=== PATIENT | male | born 2000 | race Caucasian/White ===

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

== ENCOUNTER 2018-02-09 13:36 | Emergency (ER) | payer BC ==
[2018-02-09 14:03] VITALS: BP 141/70
--- NOTE | 2018-02-09 14:08 | UC ---
Hand/Wrist HPI - HPI Summary HPI Summary: Got angry and punched a wall with left hand last night. Bruising with persistent pain today. - History Of Current Complaint Stated Complaint: LEFT HAND PAIN Time Seen by Provider: 02/09/18 13:59 Onset/Duration: Sudden Onset - punched wall, Lasting Days - 1 Severity Initially: Mild Severity Currently: Moderate Character Of Pain: Dull, Aching Aggravating Factor(s): Movement Alleviating Factor(s): Rest, Ice Associated Signs And Symptoms: Positive: Swelling, Bruising. Negative: Weakness , Numbness/Tingling Related History: Dominant Hand Right - Allergies/Home Medications Allergies/Adverse Reactions: Allergies Allergy/AdvReac Type Severity Reaction Status Date / Time No Known Allergies Allergy Verified 02/09/18 13:53 Home Medications: Home Medications Ibuprofen TAB* [Advil TAB*] 800 mg PO Q6H PRN 02/09/18 [History Confirmed ] PMH/Surg Hx/FS Hx/Imm Hx Previously Healthy: Yes - Surgical History Surgical History: None - Family History Known Family History: Positive: None Negative: Cardiac Disease, Hypertension, Diabetes - Social History Occupation: Student Lives: With Family Alcohol Use: None Substance Use Type: None Smoking Status (MU): Never Smoked Tobacco Type: Cigarettes Amount Used/How Often: social smoker on weekends - Immunization History Most Recent Influenza Vaccination: Unsure Hx Tetanus, Diphtheria Vaccination: Yes Vaccination Up to Date: Yes Review of Systems Musculoskeletal: Arthralgia Is Patient Immunocompromised?: No All Other Systems Reviewed And Are Negative: Yes Physical Exam Triage Information Reviewed: Yes Appearance: Well-Appearing, Well-Nourished, Pain Distress - mild Vital Signs Reviewed: Yes Eyes: Positive: Conjunctiva Clear Neck exam: Normal Respiratory Exam: Normal Cardiovascular Exam: Normal Musculoskeletal: Positive: ROM Limited @ - left 5th metacarpal, Other: - tenderness over middle 5th metacarpal Neurological Exam: Normal Psychological Exam: Normal Skin Exam: Normal Procedures - Splinting Hand-Made Type: orthoglass Splint: ulnar - short arm left Post-Proc Neuro Vasc Exam: normal, unchanged from pre-exam Diagnostics - Radiology No standard instances Xray Interpretation: Positive (See Comments) - left 5th metacarpal fracture Radiology Interpretation Completed By: ED Physician Hand/Wrist Course/Dx - Differential Dx/Diagnosis Differential Diagnosis/HQI/PQRI: Contusion, Fracture, Sprain, Strain Provider Diagnoses: Left 5th metacarpal fracture Discharge - Sign-Out/Discharge Documenting (check all that apply): Discharge - Discharge Plan Condition: Stable Disposition: HOME Patient Education Materials: Hand Fracture (ED), Splint Care (ED), How to Use a Sling (ED) Referrals: Lexi Espinoza PA [Primary Care Provider] - Jesus Burnette MD [Medical Doctor] - 1 Day (follow up hand fracture.) - Billing Disposition and Condition Condition: STABLE Disposition: HOME
--- NOTE | 2018-02-09 14:20 | RAD ---
INDICATION: Trauma. COMPARISON: None. TECHNIQUE: 4 views of the left hand were obtained. FINDINGS: There is a fracture at the diaphysis of the left fifth metacarpal. On the oblique view radiograph there appears to be approximately 30 degrees of dorsal angulation of the fracture site. The remaining visualized bones are intact and appropriately aligned. IMPRESSION: Fracture of the left fifth metacarpal as described above.
== END 2018-02-09 14:37 | disposition home or self-care (01) ==
LOC: UCCORT 13:36
DX: S62.357A Nondisplaced fracture of shaft of fifth metacarpal bone, left hand, initial encounter for closed fracture (principal); W22.09XA Striking against other stationary object, initial encounter; Y93.9 Activity, unspecified; Y92.9 Unspecified place or not applicable; F17.210 Nicotine dependence, cigarettes, uncomplicated
CPT/HCPCS: 26600; 99213; G0463

== ENCOUNTER 2018-04-27 15:52 | Emergency (ER) | payer BC ==
[2018-04-27 16:09] VITALS: BP 140/60
--- NOTE | 2018-04-27 16:42 | UC ---
Respiratory Complaint HPI - HPI Summary HPI Summary: states he was chilling at home when he started having chills, runny nose and sinus congestion 2 days ago, green mucus for one day. Denies tobacco smoking, PMH or pulmonary disease. - History of Current Complaint Chief Complaint: UCGeneralIllness Stated Complaint: SORE THROAT/SINUS PRESSURE Time Seen by Provider: 04/27/18 15:56 Hx Obtained From: Patient Onset/Duration: Sudden Onset, Lasting Days Severity Initially: Mild Severity Currently: Moderate Pain Intensity: 7 Character: Cough: Nonproductive Aggravating Factors: Nothing Alleviating Factors: Nothing Associated Signs And Symptoms: Positive: Nasal Congestion, Sinus Discomfort - Risk Factors Pulmonary Embolism Risk Factors: Negative Cardiac Risk Factors: Negative Pseudomonas Risk Factors: Negative Tuberculosis Risk Factors: Negative - Allergies/Home Medications Allergies/Adverse Reactions: Allergies Allergy/AdvReac Type Severity Reaction Status Date / Time No Known Allergies Allergy Verified 04/27/18 16:05 PMH/Surg Hx/FS Hx/Imm Hx Previously Healthy: Yes - Surgical History Surgical History: None - Family History Known Family History: Positive: None Negative: Cardiac Disease, Hypertension, Diabetes - Social History Alcohol Use: Occasionally Substance Use Type: None Smoking Status (MU): Never Smoked Tobacco Type: Cigarettes Amount Used/How Often: social smoker on weekends - Immunization History Most Recent Influenza Vaccination: Unsure Hx Tetanus, Diphtheria Vaccination: Yes Vaccination Up to Date: Yes Review of Systems Constitutional: Fever, Chills ENT: Nasal Discharge, Sinus Congestion Respiratory: Cough All Other Systems Reviewed And Are Negative: Yes Physical Exam Triage Information Reviewed: Yes Appearance: Well-Appearing, No Pain Distress, Well-Nourished Vital Signs: Initial Vital Signs Temp 99.1 F 04/27/18 16:06 Pulse 90 04/27/18 16:06 Resp 14 04/27/18 16:06 BP 140/60 04/27/18 16:06 Pulse Ox 100 04/27/18 16:06 Vital Signs Reviewed: Yes Eyes: Positive: Conjunctiva Clear ENT: Positive: Pharynx normal, Nasal congestion - no sinus tenderness, TMs normal Neck: Positive: Supple, Nontender, No Lymphadenopathy Respiratory: Positive: Chest non-tender, Lungs clear, Normal breath sounds, No respiratory distress, No accessory muscle use Cardiovascular: Positive: RRR, No Murmur, Pulses Normal, Brisk Capillary Refill Abdomen Description: Positive: Nontender, No Organomegaly, Soft UC Diagnostic Evaluation - Laboratory O2 Sat by Pulse Oximetry: 100 Respiratory Course/Dx - Course Course Of Treatment: acute sinusitis, possible viral etiology, discussed with patient wait and see antibiotic prescription of Augmentin, if symptoms do not improve in 4 days or worsen. - Differential Dx/Diagnosis Provider Diagnoses: acute sinusitis Discharge - Sign-Out/Discharge Documenting (check all that apply): Discharge/Admit/Transfer - Discharge Plan Condition: Stable Disposition: HOME Prescriptions: Amoxicillin/Clavulanate TAB* [Augmentin TAB 875*] 875 mg PO BID 10 Days #20 tab Patient Education Materials: Amoxicillin/Clavulanate Potassium (By mouth), Rhinosinusitis (ED) Referrals: Lexi Espinoza PA [Primary Care Provider] - Additional Instructions: augmentin is an antibiotic that was sent to your pharmacy. Please wait and see for at least 3-4 days if symptoms start to improve before you take it. If you persist with fever, and pain/discharge on sinuses becomes worse, start the antibiotic - Billing Disposition and Condition Condition: STABLE Disposition: Home
== END 2018-04-27 16:39 | disposition home or self-care (01) ==
LOC: UCCORT 15:52
DX: J01.90 Acute sinusitis, unspecified (principal); F17.210 Nicotine dependence, cigarettes, uncomplicated
CPT/HCPCS: 87651; 99212; G0463

== ENCOUNTER 2018-07-07 16:51 | Emergency (ER) | payer BC ==
[2018-07-07 17:11] VITALS: BP 125/75
[2018-07-07] MEDS ORDERED: Amoxicillin/Clavulanate TAB* 875 MG PO ONE ×3 (17:42→17:45)
--- NOTE | 2018-07-07 19:36 | UC ---
Throat Pain/Nasal Jesús HPI - HPI Summary HPI Summary: 18-year-old male comes in with a complaint of sore throat for 2 days. He is also having fevers and body aches. Minimal rhinorrhea. No chest congestion no wheezing. He has been taking ibuprofen for the pain. No vomiting no abdominal pain. - History of Current Complaint Chief Complaint: UCGeneralIllness Stated Complaint: SORE THROAT Time Seen by Provider: 07/07/18 17:36 Pain Intensity: 8 Pain Scale Used: 0-10 Numeric - Allergies/Home Medications Allergies/Adverse Reactions: Allergies Allergy/AdvReac Type Severity Reaction Status Date / Time No Known Allergies Allergy Verified 07/07/18 17:10 PMH/Surg Hx/FS Hx/Imm Hx Other Endocrine History: NO DM Other Cardiovascular History: NO HTN - Surgical History Surgical History: None - Family History Known Family History: Positive: None Negative: Cardiac Disease, Hypertension, Diabetes - Social History Alcohol Use: Occasionally Substance Use Type: None Smoking Status (MU): Never Smoked Tobacco Type: Cigarettes Amount Used/How Often: social smoker on weekends - Immunization History Most Recent Influenza Vaccination: Unsure Hx Tetanus, Diphtheria Vaccination: Yes Vaccination Up to Date: Yes Review of Systems Constitutional: Fever, Chills Skin: Negative Eyes: Negative ENT: Sore Throat, Nasal Discharge Respiratory: Negative Cardiovascular: Negative Gastrointestinal: Negative Genitourinary: Negative Motor: Negative Neurovascular: Negative Musculoskeletal: Negative Neurological: Negative Psychological: Negative Is Patient Immunocompromised?: No All Other Systems Reviewed And Are Negative: Yes Physical Exam Triage Information Reviewed: Yes Appearance: Ill-Appearing - MILDLY ILL APPEARING Vital Signs: Initial Vital Signs Temp 102.2 F 07/07/18 17:05 Pulse 112 07/07/18 17:05 Resp 18 07/07/18 17:05 BP 125/75 07/07/18 17:05 Pulse Ox 99 07/07/18 17:05 Vital Signs Reviewed: Yes Eye Exam: Normal ENT: Positive: Pharyngeal erythema, Nasal congestion, TMs normal. Negative: Tonsillar exudate, Hoarse voice Neck: Positive: Supple, Nontender Respiratory: Positive: Lungs clear, Normal breath sounds Cardiovascular: Positive: Tachycardia Abdomen Description: Positive: Nontender Musculoskeletal Exam: Normal Neurological Exam: Normal Psychological Exam: Normal Skin Exam: Normal Throat Pain/Nasal Course/Dx - Course Course Of Treatment: Rapid strep is positive - Differential Dx/Diagnosis Provider Diagnoses: Strep pharyngitis Discharge - Sign-Out/Discharge Documenting (check all that apply): Patient Departure All imaging exams completed and their final reports reviewed: No Studies - Discharge Plan Condition: Stable Disposition: HOME Prescriptions: Amoxicillin PO (*) [Amoxicillin 875 MG (*)] 875 mg PO BID #18 tab Patient Education Materials: Strep Throat (ED) Referrals: Lexi Espinoza PA [Primary Care Provider] - Additional Instructions: FOLLOW UP WITH YOUR DOCTOR IF NOT COMPLETELY IMPROVED. GET RECHECKED FOR ANY WORSENING OF YOUR CONDITION OR QUESTIONS OR CONCERNS. - Billing Disposition and Condition Condition: STABLE Disposition: Home
== END 2018-07-07 18:01 | disposition home or self-care (01) ==
LOC: UCCORT 16:51
DX: J02.0 Streptococcal pharyngitis (principal)
CPT/HCPCS: 87651; 99212; A9270-GY; G0463